=== PATIENT | male | born 1965 | race Caucasian/White ===

== ENCOUNTER 2019-09-26 09:42 | Outpatient (CLI) | payer OTHER, SELFPAY ==
[2019-09-26 10:40] LABS: Basophils Percent Auto 0.7 % (0.2-1.2); Eosinophils Absolute Auto 0.1 K/mm3 (0-0.3); Eosinophils Percent Auto 1.4 % (0-4.4); Hematocrit 44.2 % (42.0-52.0); Hemoglobin 15.3 g/dL (14.0-18.0); Immature Granulocyte Absolute 0.02 K/mm3 (0.00-0.031); Immature Granulocyte Percent A 0.5 % (0-0.5); Lymphocytes Percent Auto 27.7 % (18.3-44.2); Mean Corpuscular HGB Conc 34.6 g/dl (32-36); Mean Corpuscular Hemoglobin 31.9 pg (26-34); Mean Corpuscular Volume 92.1 fl (80-100); Mean Platelet Volume 9.5 fl (7.4-10.4); Monocytes Absolute Auto 0.5 K/mm3 (0.1-0.6); Monocytes Percent Auto 10.9 % (2.6-8.5); Neutrophils Absolute Auto 2.6 K/mm3 (1.3-6.7); Neutrophils Percent Auto 58.8 % (45.5-73.1); Platelet Count Result 217 k/mm3 (150-375); Red Cell Distribution Width 12.3 % (11.5-14.5); White Blood Count 4.3 K/mm3 (4.5-10.0)
[2019-09-26 10:48] LABS: Alanine Aminotransferase 17 U/L (4-50); Albumin Level 4.7 g/dL (3.5-5.1); Alkaline Phosphatase 63 U/L (38-126); Amylase 67 U/L (30-110); Aspartate Amino Transferase 28 U/L (17-59); Blood Urea Nitrogen 12 mg/dL (9-20); Calcium 9.2 mg/dL (8.4-10.2); Carbon Dioxide 24 mmol/L (22-30); Chloride 101 mmol/L (98-107); Estimated Glomerular Filt Rate > 60; Glucose 103 mg/dL (75-110); Lipase 67 U/L (23-300); Potassium 3.9 mmol/L (3.4-5.0); Sodium 135 mmol/L (137-145)
== END 2019-09-26 09:43 | disposition home or self-care (01) ==
PROVIDERS: PCP Family Medicine; Visit Provider Family Medicine
DX: R10.9 Unspecified abdominal pain (principal)
CPT/HCPCS: 36415; 80053; 82150; 83690; 85025

== ENCOUNTER → 2020-11-04 12:01 | Outpatient (CLI) | payer OTHER, SELFPAY ==
--- NOTE | ~2020-11-04 | XR_ITS ---
XR_CERV2-3V_CR DATE: 11/04/2020 12:48 INDICATION: Cervical radiculopathy TECHNIQUE: AP, open-mouth, lateral views COMPARISON: None FINDINGS: C1 and C2 are normally aligned and the odontoid process is intact. No fracture or dislocat ion or locked facet. No prevertebral soft tissue swelling. There is moderately prominent degenerative disc disease at C5-6 and C6-7. IMPRESSION: Moderately prominent degenerative disc disease at C5-6 and C6-7 Reviewed, dictated and finalized at [facility]. Reviewed, dictated and finalized at location A.
== END ==
PROVIDERS: PCP Family Medicine; Visit Provider Family Medicine
DX: M54.12 Radiculopathy, cervical region (principal); M50.323 Other cervical disc degeneration at C6-C7 level
CPT/HCPCS: 72040

== ENCOUNTER 2021-11-26 08:14 | Outpatient (CLI) | payer OTHER, SELFPAY ==
--- NOTE | ~2021-11-26 | XR_ITS ---
EXAMINATION: XR abdomen/kub 1V INDICATION: Epigastric pain TECHNIQUE: Supine views of the abdomen were obtained on 2 radiographs. COMPARISON: 09/01/2018 FINDINGS: The bowel gas pattern is normal. There are no dilated loops of bowel. Punctate bilateral ne phrolithiasis is noted. The visualized lung bases are clear. IMPRESSION: 1. No radiographic correlate for the patient's symptoms. Reviewed, dictated and finalized at location B.
[2021-11-26 09:06] LABS: Alanine Aminotransferase 32 U/L (6-50); Albumin Level 4.8 g/dL (3.5-5.1); Alkaline Phosphatase 64 U/L (38-126); Amylase 68 U/L (30-110); Anion Gap 10 mmol/L (8-16); Aspartate Amino Transferase 40 U/L (17-59); Blood Urea Nitrogen 13 mg/dL (9-20); Calcium 9.3 mg/dL (8.4-10.2); Carbon Dioxide 24 mmol/L (22-30); Chloride 103 mmol/L (98-107); Estimated Glomerular Filt Rate > 60; Glucose 102 mg/dL (65-110); Lipase 95 U/L (23-300); Potassium 4.2 mmol/L (3.4-5.0); Sodium 137 mmol/L (137-145)
== END 2021-11-26 08:15 | disposition home or self-care (01) ==
PROVIDERS: PCP Family Medicine; Visit Provider Physician Assistant
DX: R10.13 Epigastric pain (principal); M54.9 Dorsalgia, unspecified; Z87.442 Personal history of urinary calculi
CPT/HCPCS: 36415; 74018; 80053; 82150; 83690

== ENCOUNTER 2021-12-03 09:13 | Outpatient (CLI) | payer OTHER, SELFPAY ==
--- NOTE | ~2021-12-03 | US_ITS ---
EXAMINATION: US abdomen complete DATE: 12/03/2021 10:11 INDICATION: Epigastric pain TECHNIQUE: Multiple grayscale and Doppler ultrasound images of the abdomen were obtained. COMPARISON: 09/12/2018 FINDINGS: Bowel gas obscures visualization of the pancreas. There is a stable cluster of small hypoec hoic masses in the liver which measure up to 6 mm, most consistent with a benign finding given the la ck of interval change.. The liver is otherwise normal with normal echogenicity and echotexture. No nguyne rface nodularity. Normal hepatopetal flow in the main portal vein. The gallbladder is normal with no abnormal wall thickening, pericholecystic fluid or stones. The normal common bile duct measures 3 mm. There was no sonographic Najera sign. The visualized portions of the aorta and inferior vena cava ar e normal. The right kidney measures 11.5 x 5.7 x 4.9 cm. The left kidney measures 11.6 x 5.3 x 5.9 cm. The kidn eys demonstrate normal parenchymal echogenicity. There is no hydronephrosis. The spleen is normal in appearance and measures 10.8 cm. IMPRESSION: 1. No sonographic correlate for the patient's symptoms. Reviewed, dictated and finalized at location B.
== END 2021-12-03 09:14 | disposition home or self-care (01) ==
LOC: ANHIMG 09:18
PROVIDERS: PCP Family Medicine; Visit Provider Physician Assistant
DX: R10.13 Epigastric pain (principal); M54.9 Dorsalgia, unspecified; K59.00 Constipation, unspecified; Z87.442 Personal history of urinary calculi
CPT/HCPCS: 76700

== ENCOUNTER 2022-01-04 02:22 | Day surgery (SDC) | payer OTHER, SELFPAY ==
[2021-12-17 16:01] VITALS: BMI 30.6
--- NOTE | 2022-01-04 10:34 | P.PNAN_ITS ---
Anes - Initial Pre Proc Eval Procedure: Operation Date: 01/04/22 12:30 Proposed Procedures p Esophagogastroduodenoscopy & Colonoscopy - Meek Escobar MD Date/Time: 01/04/22 10:34 Surgeon: Meek Escobar MD Pre Op Diagnosis: hx of colon polyps, LUQP Patient Data Age: 56 Gender: M Height: 1.83 m Weight: 102.5 kg Allergies Allergy/AdvReac Type Severity Reaction Status Date / Time azithromycin Allergy Unknown Nausea and Verified 01/04/22 11:15 Vomiting Home Medications Medication Instructions Recorded Confirmed Type pantoprazole 40 mg tablet,delayed 40 mg PO BID #180 tabs 11/26/21 12/17/21 Rx release tadalafil 20 mg tablet See Rx Instructions .Route 12/28/21 01/04/22 Rx .COMPLEX #18 tabs Patient hx anesthesia problems: none Family hx anesthesia problems: none Results Review: All pre-operative results and documents have been reviewed as part of the pre- operative evaluation. [facility] Past Medical History Medical History Abdominal pain COPD (chronic obstructive pulmonary disease) GERD (gastroesophageal reflux disease) Family History Family History Father Carcinoma of colon, Onset Age: 70 Social History Social History Smoking status: Never smoker Second hand tobacco smoke exposure: No Alcohol intake: current Drinks per week: 2 Substance use: never Substance use type: does not use Living arrangements: with family Gender identity (if verbalized by the patient): Male Sexual Orientation (if Verbalized by the Patient): Straight or Heterosexual Spiritual care concerns: No Anes - Eval Final PreProcedure Day of Procedure 01/04/22 10:34 Patient weight: obese Heart: regular rate and rhythm Lungs: clear to auscultation Airway: Mallampati scale class II Neurological: alert and oriented Last oral intake: >/= 8 hours ASA classification: III Emergent: no Anesthetic plan: proceed Anesthesia type and monitoring: general GIVS and standard monitoring Results Review: All pre-operative results and documents have been reviewed as part of the pre- operative evaluation. Informed Consent: The patient's anesthetic plan and its attendant risks and benefits were discussed with the patient/family/POA. Questions were solicited and answers provided to the satisfaction of the patient/family/POA.
[2022-01-04 11:17] VITALS: BP 132/78; PULSE 81; RESP 20; TEMP 36.8; O2SAT 98; BMI 29.3
[2022-01-04] MEDS: LACTATED RINGERS 1,000 ML 150 ML IV CONT (11:21)
--- NOTE | 2022-01-04 11:31 | PM.HPGS ---
History of Present Illness History of Present Illness Consent: Risks, benefits, and alternatives have been discussed and questions answered. Patient agrees to proceed with procedure. Chief complaint: hx of colon polyps, LUQP Narrative: Eric Swan is a 56 year old male Was referred because of epigastric pain. He has been taking pantoprazole but continues to have discomfort in his upper abdomen. The pain began after he had a severe episode of constipation a couple of months ago. His bowels did finally started moving have become more regular, though the discomfort in the epigastric and left upper quadrant areas persist, a nearly constant discomfort. He has a history of polyps having had 3 polyps removed about 5 years ago. He denies seeing blood in his stools. Denies dysphagia. Review of Systems Review of Systems: All systems reviewed & are unremarkable except as noted in HPI and below PMFSH Past Medical History Medical History Abdominal pain COPD (chronic obstructive pulmonary disease) GERD (gastroesophageal reflux disease) Family History Family History Father Carcinoma of colon, Onset Age: 70 Social History Social History Smoking status: Never smoker Second hand tobacco smoke exposure: No Alcohol intake: current Drinks per week: 2 Substance use: never Substance use type: does not use Living arrangements: with family Gender identity (if verbalized by the patient): Male Sexual Orientation (if Verbalized by the Patient): Straight or Heterosexual Spiritual care concerns: No Meds Home Medications and Allergies Home Medications Medication Instructions Recorded Confirmed Type pantoprazole 40 mg tablet,delayed 40 mg PO BID #180 tabs 11/26/21 12/17/21 Rx release tadalafil 20 mg tablet See Rx Instructions .Route 12/28/21 01/04/22 Rx .COMPLEX #18 tabs Allergies Allergy/AdvReac Type Severity Reaction Status Date / Time azithromycin Allergy Unknown Nausea and Verified 01/04/22 11:15 Vomiting Vital Signs Vital Signs - 24 hr 01/04/22 11:17 Temperature 36.8 C Pulse Rate 81 Respiratory Rate 20 Blood Pressure 132/78 Pulse Oximetry 98 Oxygen Delivery Room Air Exam Const: General: alert Orientation/consciousness: patient oriented x3 Resp: Auscultation: clear to auscultation bilaterally Cardio: Rhythm: regular rhythm GI: GI Palp: Yes Soft to palpation and No Tenderness to palpation present (GI) Neuro: General: patient oriented x3 Assessment and Plan Assessment and plan (1) Epigastric pain: Code(s): R10.13 - Epigastric pain Status: Acute Assessment and Plan: EGD with possible biopsy or dilatation or cautery. (2) Colon cancer screening: Code(s): Z12.11 - Encounter for screening for malignant neoplasm of colon Status: Acute Assessment and Plan: Colonoscopy with possible biopsy or polypectomy or cautery or injection of substances.
--- NOTE | 2022-01-04 11:54 | SUR.OPER ---
EGD start 1148 end 1150, Colonoscopy start 1157 end 1207
[2022-01-04 12:11] VITALS: BP 137/81; PULSE 70; RESP 20; O2SAT 97
[2022-01-04 12:21] VITALS: BP 121/77; PULSE 68; RESP 20; O2SAT 98
[2022-01-04 12:31] VITALS: BP 118/85; PULSE 69; RESP 18; O2SAT 97
== END 2022-01-04 13:13 | disposition home or self-care (01) ==
PROVIDERS: PCP Family Medicine; Visit Provider Internal Medicine Gastroenterology
PROC: 0DJ08ZZ Inspection of Upper Intestinal Tract, Via Natural or Artificial Opening Endoscopic (ICD-10-PCS; CPT 43235; principal; 2022-01-04 12:30)
DX: Z12.11 Encounter for screening for malignant neoplasm of colon (principal); Z80.0 Family history of malignant neoplasm of digestive organs; R10.13 Epigastric pain; R10.12 Left upper quadrant pain; Z86.010 Personal history of colon polyps; J44.9 Chronic obstructive pulmonary disease, unspecified; K21.9 Gastro-esophageal reflux disease without esophagitis; R10.9 Unspecified abdominal pain
CPT/HCPCS: 43239; 45378; 87081; J2704; J7120

== ENCOUNTER 2024-04-16 12:33 | Emergency (ER) | payer OTHER, SELFPAY ==
--- NOTE | ~2024-04-16 | CT_ITS ---
CLINICAL INDICATION: Hematochezia COMPARISON: 10/19/2018. TECHNIQUE: Multiple contiguous axial images of the abdomen and pelvis were performed following the ad ministration of with 100 mL Omnipaque-350 intravenous contrast The dose-length product (DLP) was 963.81 mGy-cm. Automated exposure control and iterative reconstruction technique were employed. FINDINGS/OBSERVATIONS: Visualized lower thorax: The bilateral lung bases are clear. The heart is of normal size, without pericardial effusion. Small hiatal hernia is present. Liver: The liver is not enlarged and demonstrates homogeneous attenuation. Gallbladder and biliary system: The gallbladder is only minimally distended, and otherwise unremarkable. Pancreas: The pancreas enhances homogeneously without ductal dilatation. Spleen: The spleen enhances homogeneously and is not enlarged measuring 6cm in longitudinal dimension. Kidneys: The bilateral kidneys enhance symmetrically without hydronephrosis or obstructing renal calculi. Stable 2 and 3 mm nonobstructing renal calculi, right greater than left. Adrenal glands: Unremarkable. Gastrointestinal tract: Mural thickening with surrounding inflammatory change is identified within the sigmoid colon, finding s consistent with acute/subacute diverticulitis. No gross perforation. No drainable fluid collection. Appendix: The appendix is not definitively visualized. However, no pericecal inflammatory change is i dentified suggest the presence of acute appendicitis. Vasculature: Unremarkable. No aneurysmal dilatation or significant stenosis. Lymph nodes: No pathologically enlarged or morphologically suspicious lymph nodes within the retroperitoneum or at the root of the mesentery. Pelvic structures: The bladder is distended, and otherwise unremarkable. The prostate gland is not enlarged. Body wall and musculoskeletal: Degenerative disease within the lumbar spine with osteophyte formation, disc space narrowing, endplat e changes and vacuum phenomena. IMPRESSION: Findings consistent with acute/subacute diverticulitis of the sigmoid colon. No drainable fluid collection or gross perforation identified Multiple nonobstructing renal calculi Reviewed, dictated and finalized at location A. [employer]
[2024-04-16 12:37] VITALS: BP 146/91; PULSE 80; RESP 18; TEMP 36.7; O2SAT 99
--- NOTE | 2024-04-16 13:58 | ED.GIBLEED ---
HPI - GI Bleed General Chief complaint: GI Bleed <Brianna Bentiez APRN - Last Filed: 04/16/24 14:02> Stated complaint: blood in stool <Brianna Benitez APRN - Last Filed: 04/16/24 14:02> Time Seen by Provider: 04/16/24 13:50 <Brianna Benitez APRN - Last Filed: 04/16/24 14:02> Focused HPI: Patient is a 58-year-old male who presents ER with concerns of a GI bleed and abdominal pain. He reports he started experiencing blood in his stool on March 03. Patient reports he saw GI on March 28, 2024. The plan was for patient to get a sigmoidoscopy and CT scan but they were still waiting on insurance to authorize the procedures. Patient reports in the last day he has had increased abdominal pain, increased rectal pain, and increased tarry and bright red stools. He also endorses some nausea, lower back pain, and dizziness. Patient endorses a history of kidney stones, diverticulitis, high blood pressure. He also in sources some urinary symptoms this started in the last 24 hours. Patient denies chest pain, recent fevers, upper back pain. GENERAL: Well-appearing, well-nourished, and in no acute distress. HEAD: Normocephalic, atraumatic. CHEST: Clear to auscultation. ?No respiratory distress. HEART: Regular rate and rhythm.? NEURO: ?Alert and oriented x3. Patient screened in triage and initial orders placed.? ?Additional care and disposition to be based upon?diagnostic testing and treatment. <Brianna Benitez APRN - Last Filed: 04/16/24 14:02> History of Present Illness HPI Narrative: Major with HPI. <Jose Xie MD - Last Filed: 04/16/24 19:13> Related Data Allergies/Adverse reactions: Allergies Allergy/AdvReac Type Severity Reaction Status Date / Time azithromycin Allergy Unknown Nausea and Verified 04/16/24 12:41 Vomiting <Brianna Benitez APRN - Last Filed: 04/16/24 14:02> Review of Systems Review of Systems: All systems reviewed & are unremarkable except as noted in HPI and below <Jose Xie MD - Last Filed: 04/16/24 19:13> Constitutional: Constitutional: Reports no additional constitutional complaints <Jose Xie MD - Last Filed: 04/16/24 19:13> Cardiovascular: Cardiovascular: Reports no additional cardiovascular complaints <Jose Xie MD - Last Filed: 04/16/24 19:13> Respiratory: Respiratory: Reports no additional respiratory complaints <Jose Xie MD - Last Filed: 04/16/24 19:13> Gastrointestinal: Gastrointestinal: Reports no additional gastrointestinal complaints <Jose Xie MD - Last Filed: 04/16/24 19:13> Neurologic: Reports system reviewed and no additional complaints, except as documented <Jose Xie MD - Last Filed: 04/16/24 19:13> PMFSH Past Medical History Medical History: Medical History (Updated 04/16/24 @ 16:39 by Jose Xie MD) Constipation Bloating symptom Bright red blood per rectum GERD (gastroesophageal reflux disease) COPD (chronic obstructive pulmonary disease) Abdominal pain <Brianna Benitez APRN - Last Filed: 04/16/24 14:02> Family History Family History: Family History Father Carcinoma of colon, Onset Age: 70 <Brianna Benitez APRN - Last Filed: 04/16/24 14:02> Social History Social History: Social History Smoking status: Never smoker Second hand tobacco smoke exposure: No Alcohol intake: current Drinks per week: 2 Substance use: never Substance use type: does not use Living arrangements: with family Occupation/Education: occupation Gender identity (if verbalized by the patient): Male Sexual Orientation (if Verbalized by the Patient): Straight or Heterosexual Spiritual care concerns: No <Brianna Benitez APRN - Last Filed: 04/16/24 14:02> Exam Narrative: GENERAL: Well-appearing, well-nourished, and in no acute distress. HEAD: Normocephalic, atraumatic. ENT: Mucous membranes moist. NECK: Supple. CHEST: Clear to auscultation. No respiratory distress. HEART: Regular rate and rhythm. Normal peripheral pulses. ABDOMEN: Soft, nontender, nondistended. Normal appearing external rectum. EXTREMITIES: Normal range of motion. No edema. SKIN: Warm, dry, no rash. NEURO: Alert and oriented x3. PSYCH: Normal mood and affect. <Jose Xie MD - Last Filed: 04/16/24 19:13> Course Course Emergency Course: Patient informed of lab and imaging results. Discharge on oral antibiotics. <Jose Xie MD - Last Filed: 04/16/24 19:13> Vital Signs Vital signs: Vital Signs Temperature 98.0 F 04/16/24 12:37 Pulse Rate 80 04/16/24 12:37 Respiratory Rate 18 04/16/24 12:37 Blood Pressure 146/91 H 04/16/24 12:37 Pulse Oximetry 99 04/16/24 12:37 Oxygen Delivery Autopap 04/16/24 12:37 Temperature 97.8 F 04/16/24 17:03 Pulse Rate 72 04/16/24 17:03 Respiratory Rate 18 04/16/24 17:03 Blood Pressure 138/85 04/16/24 17:03 Pulse Oximetry 97 04/16/24 17:03 Oxygen Delivery Autopap 04/16/24 12:37 <Brianna Benitez APRN - Last Filed: 04/16/24 14:02> Vital Signs Temperature 98.0 F 04/16/24 12:37 Pulse Rate 80 04/16/24 12:37 Respiratory Rate 18 04/16/24 12:37 Blood Pressure 146/91 H 04/16/24 12:37 Pulse Oximetry 99 04/16/24 12:37 Oxygen Delivery Autopap 04/16/24 12:37 Temperature 97.8 F 04/16/24 17:03 Pulse Rate 72 04/16/24 17:03 Respiratory Rate 18 04/16/24 17:03 Blood Pressure 138/85 04/16/24 17:03 Pulse Oximetry 97 04/16/24 17:03 Oxygen Delivery Autopap 04/16/24 12:37 <Jose Xie MD - Last Filed: 04/16/24 19:13> MDM - GI Bleed Lab Data Result diagrams: 04/16/24 14:04 04/16/24 14:04 <Brianna Benitez, [employer] - Last Filed: 04/16/24 14:02> Labs: Lab Results 04/16/24 Range/Units 14:04 WBC 5.8 (4.5-10.0) K/mm3 RBC 5.02 (4.6-6.20) M/mm3 Hgb 15.9 (14.0-18.0) g/dL Hct 47.1 (42.0-52.0) % MCV 93.8 (80-100) fl MCH 31.7 (26-34) pg MCHC 33.8 (32-36) g/dl RDW 12.7 (11.5-14.5) % Plt Count 280 (150-375) k/mm3 MPV 9.0 (7.4-10.4) fl Immature Gran % (Auto) 0.3 (0-0.5) % Neut % (Auto) 57.8 (45.5-73.1) % Lymph % (Auto) 26.8 (18.3-44.2) % [place] % (Auto) 11.5 H (2.6-8.5) % Eos % (Auto) 2.7 (0-4.4) % Baso % (Auto) 0.9 (0.2-1.2) % Lymph # (Auto) 1.56 (0.9-3.2) K/mm3 [place] # (Auto) 0.7 H (0.1-0.6) K/mm3 Eos # (Auto) 0.2 (0-0.3) K/mm3 Baso # (Auto) 0.1 (0.0-0.1) K/mm3 Abs Immat Gran (auto) 0.02 (0.00-0.031) K/mm3 Absolute Neuts (auto) 3.4 (1.3-6.7) K/mm3 Absolute Nucleated RBC 0.000 (0.0-0.012) K/mm3 Nucleated RBC % 0.0 (0.0-0.2) % PT 12.6 (11.1-14.7) Seconds INR 0.9 APTT 26.4 (22.3-36.8) Seconds Sodium 139 (137-145) mmol/L Potassium 4.2 (3.4-5.0) mmol/L Chloride 103 (98-107) mmol/L Carbon Dioxide 25 (22-30) mmol/L Anion Gap 11 (4-12) mmol/L BUN 15 (9-20) mg/dL Creatinine 0.92 (0.7-1.3) mg/dL Estim Creat Clear Calc 86 ml/min Estimated GFR > 60 (59 - ) Glucose 93 (65-110) mg/dL Calcium 9.3 (8.4-10.2) mg/dL Magnesium 2.2 (1.6-2.3) mg/dL Total Bilirubin 0.8 (0.2-1.3) mg/dL AST 28 (17-59) U/L ALT 26 (6-50) U/L Alkaline Phosphatase 76 (38-126) U/L Total Protein 8.0 (6.3-8.2) g/dL Albumin 4.7 (3.5-5.1) g/dL Lipase 107 (23-300) U/L Blood Type O Positive Antibody Screen Negative <Brianna Benitez, [employer] - Last Filed: 04/16/24 14:02> Lab Results 04/16/24 Range/Units 14:04 WBC 5.8 (4.5-10.0) K/mm3 RBC 5.02 (4.6-6.20) M/mm3 Hgb 15.9 (14.0-18.0) g/dL Hct 47.1 (42.0-52.0) % MCV 93.8 (80-100) fl MCH 31.7 (26-34) pg MCHC 33.8 (32-36) g/dl RDW 12.7 (11.5-14.5) % Plt Count 280 (150-375) k/mm3 MPV 9.0 (7.4-10.4) fl Immature Gran % (Auto) 0.3 (0-0.5) % Neut % (Auto) 57.8 (45.5-73.1) % Lymph % (Auto) 26.8 (18.3-44.2) % [place] % (Auto) 11.5 H (2.6-8.5) % Eos % (Auto) 2.7 (0-4.4) % Baso % (Auto) 0.9 (0.2-1.2) % Lymph # (Auto) 1.56 (0.9-3.2) K/mm3 [place] # (Auto) 0.7 H (0.1-0.6) K/mm3 Eos # (Auto) 0.2 (0-0.3) K/mm3 Baso # (Auto) 0.1 (0.0-0.1) K/mm3 Abs Immat Gran (auto) 0.02 (0.00-0.031) K/mm3 Absolute Neuts (auto) 3.4 (1.3-6.7) K/mm3 Absolute Nucleated RBC 0.000 (0.0-0.012) K/mm3 Nucleated RBC % 0.0 (0.0-0.2) % PT 12.6 (11.1-14.7) Seconds INR 0.9 APTT 26.4 (22.3-36.8) Seconds Sodium 139 (137-145) mmol/L Potassium 4.2 (3.4-5.0) mmol/L Chloride 103 (98-107) mmol/L Carbon Dioxide 25 (22-30) mmol/L Anion Gap 11 (4-12) mmol/L BUN 15 (9-20) mg/dL Creatinine 0.92 (0.7-1.3) mg/dL Estim Creat Clear Calc 86 ml/min Estimated GFR > 60 (59 - ) Glucose 93 (65-110) mg/dL Calcium 9.3 (8.4-10.2) mg/dL Magnesium 2.2 (1.6-2.3) mg/dL Total Bilirubin 0.8 (0.2-1.3) mg/dL AST 28 (17-59) U/L ALT 26 (6-50) U/L Alkaline Phosphatase 76 (38-126) U/L Total Protein 8.0 (6.3-8.2) g/dL Albumin 4.7 (3.5-5.1) g/dL Lipase 107 (23-300) U/L Blood Type O Positive Antibody Screen Negative <Jose Xie MD - Last Filed: 04/16/24 19:13> Discharge Plan Discharge Clinical Impression: Diverticulitis <Brianna Benitez APRN - Last Filed: 04/16/24 14:02> Patient Disposition: Home, Self-Care <Brianna Benitez APRN - Last Filed: 04/16/24 14:02> Condition: Stable <Brianna Benitez APRN - Last Filed: 04/16/24 14:02> Instructions: Diverticulitis (ED), Diverticulitis Diet (ED) <Brianna Benitez APRN - Last Filed: 04/16/24 14:02> Additional Instructions: Return to the emergency department if you develop severe abdominal pain, severe nausea and vomiting to the point where you are unable to keep down fluids, if you develop chest pain or difficulty breathing, blood in your stool, dizziness or fainting, or if you develop any other new or concerning symptoms as these could be signs of more serious medical illness. Try to stay well hydrated. <Brianna Benitez APRN - Last Filed: 04/16/24 14:02> Patient Language: Vietnamese <Brianna Benitez APRN - Last Filed: 04/16/24 14:02> Prescriptions: New amoxicillin-pot clavulanate 875-125 mg tablet 1 tablet PO Q12H Qty: 14 0RF No Action pantoprazole [Protonix] 40 mg tablet,delayed release (DR/EC) 40 mg PO BID Qty: 180 3RF tadalafil 20 mg tablet See Rx Instructions .ROUTE .COMPLEX Qty: 18 3RF Dose Instruction: TAKE 1 TABLET DAILY FOR SEXUAL ACTIVITY Rx Instructions: TAKE 1 TABLET DAILY FOR SEXUAL ACTIVITY <Brianna Benitez APRN - Last Filed: 04/16/24 14:02> Follow-up/Referrals: Philip Allison MD [Primary Care Provider] - 1 Week <Brianna Benitez APRN - Last Filed: 04/16/24 14:02>
[2024-04-16] MEDS: PANTOPRAZOLE SODIUM IV 40 MG VIAL IV PUSH (14:04)
[2024-04-16] MEDS: ONDANSETRON INJ 4 MG/2 ML VIAL IV PUSH (14:04)
[2024-04-16 14:19] LABS: Basophils Absolute Auto 0.1 K/mm3 (0.0-0.1); Basophils Percent Auto 0.9 % (0.2-1.2); Eosinophils Absolute Auto 0.2 K/mm3 (0-0.3); Eosinophils Percent Auto 2.7 % (0-4.4); Hematocrit 47.1 % (42.0-52.0); Hemoglobin 15.9 g/dL (14.0-18.0); Immature Granulocyte Absolute 0.02 K/mm3 (0.00-0.031); Immature Granulocyte Percent A 0.3 % (0-0.5); Lymphocytes Absolute Auto 1.56 K/mm3 (0.9-3.2); Lymphocytes Percent Auto 26.8 % (18.3-44.2); Mean Corpuscular HGB Conc 33.8 g/dl (32-36); Mean Corpuscular Hemoglobin 31.7 pg (26-34); Mean Corpuscular Volume 93.8 fl (80-100); Monocytes Absolute Auto 0.7 K/mm3 (0.1-0.6); Monocytes Percent Auto 11.5 % (2.6-8.5); Neutrophils Absolute Auto 3.4 K/mm3 (1.3-6.7); Neutrophils Percent Auto 57.8 % (45.5-73.1); Platelet Count Result 280 k/mm3 (150-375); Red Blood Count 5.02 M/mm3 (4.6-6.20); Red Cell Distribution Width 12.7 % (11.5-14.5); White Blood Count 5.8 K/mm3 (4.5-10.0)
[2024-04-16 14:30] LABS: Alanine Aminotransferase 26 U/L (6-50); Albumin Level 4.7 g/dL (3.5-5.1); Alkaline Phosphatase 76 U/L (38-126); Anion Gap 11 mmol/L (4-12); Aspartate Amino Transferase 28 U/L (17-59); Bilirubin,Total 0.8 mg/dL (0.2-1.3); Blood Urea Nitrogen 15 mg/dL (9-20); Calcium 9.3 mg/dL (8.4-10.2); Carbon Dioxide 25 mmol/L (22-30); Chloride 103 mmol/L (98-107); Estimated CRCL calculation 86 ml/min; Estimated Glomerular Filt Rate > 60; Glucose 93 mg/dL (65-110); INR 0.9; Lipase 107 U/L (23-300); Magnesium 2.2 mg/dL (1.6-2.3); Potassium 4.2 mmol/L (3.4-5.0); Prothrombin Time 12.6 Seconds (11.1-14.7); Sodium 139 mmol/L (137-145)
[2024-04-16 14:31] LABS: Partial Thromboplastin Time 26.4 Seconds (22.3-36.8)
[2024-04-16 14:36] VITALS: BP 142/85; PULSE 72; RESP 13; O2SAT 100
[2024-04-16] MEDS: SODIUM CHLORIDE 0.9% IV 1,000 ML 999 ML IV CONT (14:37)
--- NOTE | 2024-04-16 15:48 | PC.NURSE ---
Patient ambulated to the restroom with steady gate
[2024-04-16 17:03] VITALS: BP 138/85; PULSE 72; RESP 18; TEMP 36.6; O2SAT 97
== END 2024-04-16 17:03 | disposition home or self-care (01) ==
PROVIDERS: Registered Nurse; Emergency Provider Emergency Medicine; PCP Family Medicine
DX: K57.32 Diverticulitis of large intestine without perforation or abscess without bleeding (principal); K21.9 Gastro-esophageal reflux disease without esophagitis; J44.9 Chronic obstructive pulmonary disease, unspecified; N20.0 Calculus of kidney
CPT/HCPCS: 36415; 74177; 80053; 83690; 83735; 85025; 85610; 85730; 86850; 86900; 86901; 96361; 96374; 96375; 99284; J2405; J2470; J7030; Q9967

== ENCOUNTER 2024-05-22 16:09 | Outpatient (CLI) | payer OTHER, SELFPAY ==
[2024-05-22 16:32] LABS: Basophils Percent Auto 0.7 % (0.2-1.2); Eosinophils Absolute Auto 0.2 K/mm3 (0-0.3); Eosinophils Percent Auto 3.7 % (0-4.4); Hematocrit 43.7 % (42.0-52.0); Hemoglobin 14.9 g/dL (14.0-18.0); Immature Granulocyte Absolute 0.03 K/mm3 (0.00-0.031); Immature Granulocyte Percent A 0.5 % (0-0.5); Lymphocytes Absolute Auto 1.72 K/mm3 (0.9-3.2); Mean Corpuscular HGB Conc 34.1 g/dl (32-36); Mean Corpuscular Hemoglobin 31.5 pg (26-34); Mean Corpuscular Volume 92.4 fl (80-100); Mean Platelet Volume 8.6 fl (7.4-10.4); Monocytes Absolute Auto 0.7 K/mm3 (0.1-0.6); Monocytes Percent Auto 11.7 % (2.6-8.5); Neutrophils Absolute Auto 3.1 K/mm3 (1.3-6.7); Neutrophils Percent Auto 53.4 % (45.5-73.1); Platelet Count Result 305 k/mm3 (150-375); Red Blood Count 4.73 M/mm3 (4.6-6.20); Red Cell Distribution Width 12.9 % (11.5-14.5); White Blood Count 5.7 K/mm3 (4.5-10.0)
[2024-05-22 16:49] LABS: Alanine Aminotransferase 48 U/L (6-50); Albumin Level 4.6 g/dL (3.5-5.1); Alkaline Phosphatase 77 U/L (38-126); Anion Gap 13 mmol/L (4-12); Aspartate Amino Transferase 36 U/L (17-59); Blood Urea Nitrogen 14 mg/dL (9-20); Calcium 9.5 mg/dL (8.4-10.2); Carbon Dioxide 24 mmol/L (22-30); Chloride 102 mmol/L (98-107); Estimated Glomerular Filt Rate > 60; Glucose 103 mg/dL (65-110); Potassium 3.9 mmol/L (3.4-5.0); Sodium 139 mmol/L (137-145)
== END 2024-05-22 16:10 | disposition home or self-care (01) ==
PROVIDERS: PCP Family Medicine; Visit Provider Family Medicine
DX: R10.9 Unspecified abdominal pain (principal)
CPT/HCPCS: 36415; 80053; 85025

== ENCOUNTER 2024-05-23 09:01 | Outpatient (CLI) | payer OTHER, SELFPAY ==
--- NOTE | ~2024-05-23 | CT_ITS ---
EXAMINATION: CT abdomen pelvis w con DATE: 05/23/2024 09:56 INDICATION: Diverticulitis of the intestine with TECHNIQUE: Computed tomography (CT) of the abdomen and pelvis was performed with 100 mL Omnipaque-350 intravenous contrast. Automated exposure control and iterative reconstruction technique were employe d. The dose-length product was 775.47 mGy-cm. COMPARISON: 04/16/2024 FINDINGS: Mild discoid atelectasis at the lingula. Heart size is normal. No pericardial or pleural effusion. Li bharati, gallbladder, spleen, pancreas and bilateral adrenal glands are normal. Bilateral nonobstructing nephrolithiasis with 2 stones measuring up to 2 mm in the left kidney and 4 stones in the right kidne y measuring up to 4 mm. Bladder is normal. Mild prostatomegaly measuring 4.5 x 3.3 cm. Small fat-cont aining left inguinal hernia. There is prominent diverticulosis along the sigmoid and distal descendin g colon without adjacent inflammatory stranding to suggest acute diverticulitis. There is relatively diffuse mild wall thickening throughout the sigmoid colon which could be due to acute colitis which c ould be infectious or inflammatory in etiology or chronic sequela of prior diverticulitis. There is m ild likely reactive lymphadenopathy along the sigmoid mesentery. No bowel obstruction. No free intrap eritoneal gas or fluid. No pathologically enlarged abdominal or pelvic lymphadenopathy. Severe spondy losis at L5-S1 with mild to moderate spondylosis and more cephalad lumbar and lower thoracic spine. IMPRESSION: 1. Prominent diverticulosis with wall thickening along the sigmoid colon which could be due to infect ious or inflammatory colitis or chronic sequela of prior diverticulitis. 2. Lymphadenopathy along the sigmoid mesentery which is most likely reactive. 3. Bilateral nonobstructing nephrolithiasis. Reviewed, dictated and finalized at location B. [facility] IMPRESSION: 1. Prominent diverticulosis with wall thickening along the sigmoid colon which could be due to infectious or inflammatory colitis or chronic sequela of prior diverticulitis. 2. Lymphadenopathy along the sigmoid mesentery which is most likely reactive. 3. Bilateral nonobstructing nephrolithiasis.
== END 2024-05-23 09:02 | disposition home or self-care (01) ==
PROVIDERS: PCP Family Medicine; Visit Provider Family Medicine
DX: K57.30 Diverticulosis of large intestine without perforation or abscess without bleeding (principal); R59.1 Generalized enlarged lymph nodes; N20.0 Calculus of kidney
CPT/HCPCS: 74177; Q9967

== ENCOUNTER 2024-05-23 13:04 | Emergency (ER) | payer OTHER, SELFPAY ==
[2024-05-23 13:13] VITALS: BP 121/68; PULSE 94; RESP 18; TEMP 36.3; O2SAT 98
[2024-05-23 14:14] LABS: Basophils Absolute Auto 0.1 K/mm3 (0.0-0.1); Basophils Percent Auto 0.9 % (0.2-1.2); Eosinophils Absolute Auto 0.3 K/mm3 (0-0.3); Eosinophils Percent Auto 5.4 % (0-4.4); Hematocrit 42.1 % (42.0-52.0); Hemoglobin 14.6 g/dL (14.0-18.0); Immature Granulocyte Absolute 0.03 K/mm3 (0.00-0.031); Immature Granulocyte Percent A 0.6 % (0-0.5); Lymphocytes Absolute Auto 1.64 K/mm3 (0.9-3.2); Lymphocytes Percent Auto 30.4 % (18.3-44.2); Mean Corpuscular HGB Conc 34.7 g/dl (32-36); Mean Corpuscular Hemoglobin 31.7 pg (26-34); Mean Corpuscular Volume 91.5 fl (80-100); Mean Platelet Volume 8.7 fl (7.4-10.4); Monocytes Absolute Auto 0.6 K/mm3 (0.1-0.6); Monocytes Percent Auto 10.2 % (2.6-8.5); Neutrophils Absolute Auto 2.8 K/mm3 (1.3-6.7); Neutrophils Percent Auto 52.5 % (45.5-73.1); Platelet Count Result 306 k/mm3 (150-375); White Blood Count 5.4 K/mm3 (4.5-10.0)
[2024-05-23 14:25] LABS: INR 0.9; Prothrombin Time 12.8 Seconds (11.1-14.7)
[2024-05-23 14:26] LABS: Partial Thromboplastin Time 26.2 Seconds (22.3-36.8)
[2024-05-23 14:27] LABS: Alanine Aminotransferase 47 U/L (6-50); Albumin Level 4.2 g/dL (3.5-5.1); Alkaline Phosphatase 87 U/L (38-126); Anion Gap 10 mmol/L (4-12); Aspartate Amino Transferase 36 U/L (17-59); Bilirubin,Total 0.7 mg/dL (0.2-1.3); Blood Urea Nitrogen 14 mg/dL (9-20); Calcium 9.1 mg/dL (8.4-10.2); Carbon Dioxide 24 mmol/L (22-30); Chloride 106 mmol/L (98-107); Estimated CRCL calculation 83 ml/min; Estimated Glomerular Filt Rate > 60; Glucose 138 mg/dL (65-110); Lactic Acid Reflex 1.1 mmol/L (0.7-2.0); Lipase 119 U/L (23-300); Potassium 3.8 mmol/L (3.4-5.0); Sodium 140 mmol/L (137-145)
--- NOTE | 2024-05-23 15:38 | ED.ABDPAIN ---
HPI - Abdominal Pain General Chief Complaint: Abdominal Pain Stated Complaint: Enlarged Sigmoid Colon-sent by PMD Time Seen by Provider: 05/23/24 13:45 History of Present Illness HPI narrative: Patient is a 58-year-old male who presents ER after having an outpatient CT scan that showed thickening of the sigmoid colon that may be related to chronic sequelae of diverticulitis or possibly colitis. Patient has been on Augmentin as well as Cipro/Flagyl. He has been having blood clots in his stools. Reports still have an explosive stool 2 to 3 times a day. Only once today. No fevers or chills or sweats. Mild left-sided abdominal pain. Initially seen by the GI [facility] but recently seen by his PCP. No syncope. No fevers. Related Data Allergies Allergy/AdvReac Type Severity Reaction Status Date / Time azithromycin Allergy Unknown Nausea and Verified 05/23/24 13:05 Vomiting Review of Systems Review of Systems: All systems reviewed & are unremarkable except as noted in HPI and below Constitutional: Constitutional: Reports no additional constitutional complaints ENT: Reports system reviewed and no additional complaints, except as documented Cardiovascular: Cardiovascular: Reports no additional cardiovascular complaints Respiratory: Respiratory: Reports no additional respiratory complaints Gastrointestinal: Gastrointestinal: Reports no additional gastrointestinal complaints FOR[facility]LY [facility] Past Medical History Medical History Constipation Bloating symptom Bright red blood per rectum GERD (gastroesophageal reflux disease) COPD (chronic obstructive pulmonary disease) Abdominal pain Family History Family History Father Carcinoma of colon, Onset Age: 70 Social History Social History (Updated 05/22/24 @ 15:08 by Emeli Lassiter) Social History: Smoking status: Never smoker Second hand tobacco smoke exposure: No Alcohol intake: current Drinks per week: 2 Substance use: never Substance use type: does not use Do You Feel Safe in your Home?: Yes Lack of Transportation: No Lack of Food: Never True Current Housing: I Have Housing Concerned About Future Housing: No Difficulty Paying Gas/Electric Bills: No Difficulty Paying for Meds: No Currently Unemployed: No Education: Don't Know Difficulty w/ Childcare or Family Care: No Living arrangements: with family Occupation/Education: occupation Gender identity (if verbalized by the patient): Male Sexual Orientation (if Verbalized by the Patient): Straight or Heterosexual Spiritual care concerns: No Exam Narrative: GENERAL: Well-appearing, well-nourished, and in no acute distress. HEAD: Normocephalic, atraumatic. ENT: Mucous membranes moist. CHEST: Clear to auscultation. No respiratory distress. HEART: Regular rate and rhythm. Normal peripheral pulses. ABDOMEN: Soft, mild left lower quadrant tenderness, nondistended. EXTREMITIES: Normal range of motion. No edema. SKIN: Warm, dry, no rash. NEURO: Alert and oriented x3. PSYCH: Normal mood and affect. Course Course Emergency Course: Outside images reviewed. Patient has shown me pictures of his stool which seem to be loose but not overt diarrhea. There is blood surrounding the stool but not filling the toilet. The water will become tinged with blood. Discussed case with GI, Dr. Mcallister. Patient is unable provide a stool sample here to check for C diff. It is not recommended that he be started on any additional antibiotics. He should follow up in clinic. He reports he can take a couple of weeks for diverticulitis to resolve on imaging. Will place on dicyclomine and simethicone and recommend follow-up with PCP. Vital Signs Vital signs: Vital Signs Temperature 97.4 F L 05/23/24 13:13 Pulse Rate 94 05/23/24 13:13 Respiratory Rate 18 05/23/24 13:13 Blood Pressure 121/68 05/23/24 13:13 Pulse Oximetry 98 05/23/24 13:13 Temperature 97.4 F L 05/23/24 13:13 Pulse Rate 80 05/23/24 15:54 Respiratory Rate 16 05/23/24 15:54 Blood Pressure 114/70 05/23/24 15:54 Pulse Oximetry 97 05/23/24 15:54 MDM - Abdominal Pain Lab Data 05/23/24 14:00 05/23/24 14:00 Labs: Lab Results 05/23/24 Range/Units 14:00 WBC 5.4 (4.5-10.0) K/mm3 RBC 4.60 (4.6-6.20) M/mm3 Hgb 14.6 (14.0-18.0) g/dL Hct 42.1 (42.0-52.0) % MCV 91.5 (80-100) fl MCH 31.7 (26-34) pg MCHC 34.7 (32-36) g/dl RDW 13.0 (11.5-14.5) % Plt Count 306 (150-375) k/mm3 MPV 8.7 (7.4-10.4) fl Immature Gran % (Auto) 0.6 H (0-0.5) % Neut % (Auto) 52.5 (45.5-73.1) % Lymph % (Auto) 30.4 (18.3-44.2) % Holmes % (Auto) 10.2 H (2.6-8.5) % Eos % (Auto) 5.4 H (0-4.4) % Baso % (Auto) 0.9 (0.2-1.2) % Lymph # (Auto) 1.64 (0.9-3.2) K/mm3 Holmes # (Auto) 0.6 (0.1-0.6) K/mm3 Eos # (Auto) 0.3 (0-0.3) K/mm3 Baso # (Auto) 0.1 (0.0-0.1) K/mm3 Abs Immat Gran (auto) 0.03 (0.00-0.031) K/mm3 Absolute Neuts (auto) 2.8 (1.3-6.7) K/mm3 Absolute Nucleated RBC 0.000 (0.0-0.012) K/mm3 Nucleated RBC % 0.0 (0.0-0.2) % PT 12.8 (11.1-14.7) Seconds INR 0.9 APTT 26.2 (22.3-36.8) Seconds Sodium 140 (137-145) mmol/L Potassium 3.8 (3.4-5.0) mmol/L Chloride 106 (98-107) mmol/L Carbon Dioxide 24 (22-30) mmol/L Anion Gap 10 (4-12) mmol/L BUN 14 (9-20) mg/dL Creatinine 0.92 (0.7-1.3) mg/dL Estim Creat Clear Calc 83 ml/min Estimated GFR > 60 (59 - ) Glucose 138 H (65-110) mg/dL Lactic Acid 1.1 (0.7-2.0) mmol/L Calcium 9.1 (8.4-10.2) mg/dL Total Bilirubin 0.7 (0.2-1.3) mg/dL AST 36 (17-59) U/L ALT 47 (6-50) U/L Alkaline Phosphatase 87 (38-126) U/L Total Protein 7.0 (6.3-8.2) g/dL Albumin 4.2 (3.5-5.1) g/dL Lipase 119 (23-300) U/L Discharge Plan Discharge Clinical Impression: Colitis Patient Disposition: Home, Self-Care Condition: Stable Instructions: Antibiotic Form, Colitis (ED) Additional Instructions: Is not currently recommended that you be on any additional antibiotic. You do need to provide a stool sample so can be checked for C diff. You should follow-up with GI. Patient Language: Korean Prescriptions: New simethicone 125 mg capsule 125 mg PO QID Qty: 20 0RF Rx Instructions: administer after meals and at bedtime dicyclomine 20 mg tablet 20 mg PO QID Qty: 20 0RF ondansetron 4 mg tablet,disintegrating 4 mg PO Q6H PRN (Reason: nausea and vomiting) Qty: 10 0RF No Action pantoprazole [Protonix] 40 mg tablet,delayed release (DR/EC) 40 mg PO BID Qty: 180 3RF tadalafil 20 mg tablet See Rx Instructions .ROUTE .COMPLEX Qty: 18 3RF Dose Instruction: TAKE 1 TABLET DAILY FOR SEXUAL ACTIVITY Rx Instructions: TAKE 1 TABLET DAILY FOR SEXUAL ACTIVITY dicyclomine 10 mg capsule 10 mg PO TID PRN (Reason: abdominal pain) Qty: 14 0RF ondansetron 4 mg tablet,disintegrating 4 mg PO Q6H PRN (Reason: nausea and vomiting) Qty: 14 0RF Follow-up/Referrals: Philip Allison MD [Primary Care Provider] - Angel Mcallister MD [Physician] - 1 Week
[2024-05-23 15:54] VITALS: BP 114/70; PULSE 80; RESP 16; O2SAT 97
== END 2024-05-23 17:15 | disposition home or self-care (01) ==
PROVIDERS: Emergency Medicine; Emergency Provider Emergency Medicine; PCP Family Medicine
DX: K52.9 Noninfective gastroenteritis and colitis, unspecified (principal); J44.9 Chronic obstructive pulmonary disease, unspecified; K21.9 Gastro-esophageal reflux disease without esophagitis
CPT/HCPCS: 36415; 80053; 83605; 83690; 85025; 85610; 85730; 87040; 99283

== ENCOUNTER 2024-05-29 11:11 | Outpatient (CLI) | payer OTHER, SELFPAY ==
[2024-05-29 12:11] LABS: Toxigenic C. Diff NEGATIVE (NEGATIVE)
--- OUTSIDE RECORDS SUMMARY | 2024-05-29 13:00 | XMS_ITS | Clinical Summary ---
Author Organization [facility] Address [address] [place] [address] Care Team Providers Care Cad Administrator Name Role Phone None, Provider MD Primary Care Provider Unavaila ble Allergies Active Allergy Reactions Criticality Noted Date Comments Azithromycin Hives 05/24/2024 Medications dicyclomine (BENTYL) 10 MG capsule Take 1 capsule (10 mg total) by mouth 3 (three) times daily as needed (abdominal pain). 05/08/2024 Active pantoprazole EC (PROTONIX) 40 MG tablet Take 1 tablet (40 mg total) by mouth 2 (two) times daily. 04/22/2024 Active tadalafil (CIALIS) 20 MG tablet Take 1 tablet (20 mg total) by mouth daily as needed for Erectile Dysfunction. 03/07/2024 Active Encounters Date Type Department Care Team Description 05/25/2024 Telephone [facility] - [facility] [address] [facility] [place] [address] Henry Yanez MD Appointment Request 05/24/2024 12:24 PM EXPERIMENTAL MACHINING LAB MANAGER - 05/24/2024 11:36 PM [facility] Emergency [facility] [place] [address] Héctor Hernandez DO Blood In Stool Discharge Disposition: Home or Self Care (Routine Discharge) 05/24/2024 Travel from Last 3 Months Social History Tobacco Use Types Packs/Day Years Used Date Smoking Tobacco: Never Smokeless Tobacco: Never Tobacco Cessation:Counseling Given: Not Answered Alcohol Use Standard Drinks/Week Comments Never 0 (1 standard drink = 0.6 oz pur e alcohol) Sex and Gender Information Value Date Recorded Sex Assigned at Male 05/24/2024 12:27 PM EXPERIMENTAL MACHINING LAB MANAGER Legal Sex Male 12:11 PM EXPERIMENTAL MACHINING LAB MANAGER Gender Identity Not on file Sexual Orientation Not on file Last Filed Vital Signs Vital Sign Reading Time Taken Comments Blood Pressure 113/83 05/24/2024 11:00 PM EXPERIMENTAL MACHINING LAB MANAGER Pulse 74 05/24/2024 11:00 PM EXPERIMENTAL MACHINING LAB MANAGER Temperature 36.9 C (98.5 F) 05/24/2024 12:13 PM EXPERIMENTAL MACHINING LAB MANAGER Respiratory Rate 18 05/24/2024 11:00 PM EXPERIMENTAL MACHINING LAB MANAGER Oxygen Saturation 95% 05/24/2024 11:00 PM EXPERIMENTAL MACHINING LAB MANAGER Inhaled Oxygen Concentration - - Weight 94.3 kg (208 lb) 05/24/2024 12:13 PM EXPERIMENTAL MACHINING LAB MANAGER Height 182.9 cm (6') 05/24/2024 12:13 PM EXPERIMENTAL MACHINING LAB MANAGER Body Mass Index 28.21 05/24/2024 12:13 PM EXPERIMENTAL MACHINING LAB MANAGER Plan of Treatment Upcoming Encounters Date Type Department Care Team (Late st Contact Info) Description 06/06/2024 11:20 AM CDT Office Visit [facility] Mult[facility]pec[facility]ty Care - [address], [address] [place] [phone] Pawel Gay PA-C 3 [facility] [address] [place] [address] Health Maintenance Due Date Last Done Comments Annual Physical 08/12/1968 Hepatitis C 1982 DTaP, Tdap and Td Vaccines ( 1 - Tdap) 08/12/1983 Zoster Vaccines (1 of 2) 2014 COVID-19 Vaccine (2023-2 5 season) 2023 Influenza Adult (#1) 2023 PHQ-2 (Physician [place]) 03/21/2024 Colorectal Cancer Screening FIT/FOBT (1 Year) 05/24/2025 05/24/2024 Meningococcal B Vaccine Aged Out No l onger eligible based on patient's age to complete this topic Meningococcal Vaccine Aged Out No zi kika eligible based on patient's age to complete this topic Pneumococcal Vaccine: Pediat rics (0 to 5 Years) and At-Risk Patients (6 to 64 Years) Aged Out No longer eligi ble based on patient's age to complete this topic RSV Immunizations Under 20 Months Aged Out No longer eligible based on patient's age to complete this topic Procedures Procedure Name Priority Date/Time Associated Diagnosis Comments HC URINALYSIS AUTO W/O MICRO STAT 05/24/2024 10:04 PM EXPERIMENTAL MACHINING LAB MANAGER OCCULT BLOOD, FECES STAT 05/24/2024 7 :52 PM EXPERIMENTAL MACHINING LAB MANAGER CT ABD+PEL W CON STAT 05/24/2024 3:10 PM EXPERIMENTAL MACHINING LAB MANAGER TYPE & SCREEN STAT 05/24/2024 12:29 PM EXPERIMENTAL MACHINING LAB MANAGER LIPASE Routine 05/24/2024 12:29 PM EXPERIMENTAL MACHINING LAB MANAGER COMPREHENSIVE METABOLIC PANEL STAT 05/24/2024 12:29 PM EXPERIMENTAL MACHINING LAB MANAGER CBC W/DIFF AUTOMATED STAT 05/24/2024 12:29 PM EXPERIMENTAL MACHINING LAB MANAGER from Last 3 Months Results * (ABNORMAL) URINALYSIS (05/24/2024 10:04 PM EXPERIMENTAL MACHINING LAB MANAGER) SPECIMEN TYPE URINE, UNSPECIFIED 05/24/2024 8:30 PM EXPERIMENTAL MACHINING LAB MANAGER [facility] COLOR (U) LIGHT YELLOW 05/24/2024 10:35 PM EXPERIMENTAL MACHINING LAB MANAGER [facility] TRANSPARENCY CLEAR 05/24/2024 10:35 PM EXPERIMENTAL MACHINING LAB MANAGER [facility] SPECIFIC GRAVITY (U) >1.050(H) 1.001 - 1.030 05/24/2024 10:35 PM EXPERIMENTAL MACHINING LAB MANAGER [facility] U PH 6.5 5.0 - 9.0 05/24/2024 10:35 PM EXPERIMENTAL MACHINING LAB MANAGER [facility] LEUKOCYTES (U) NEGATIVE NEGATIVE 05/24/2024 10:35 PM EXPERIMENTAL MACHINING LAB MANAGER [facility] NITRITES NEGATIVE NEGATIVE 05/24/2024 10:35 PM [facility] PROTEIN RANDOM (U) NEGATIVE <30 MG/DL 05/24/2024 10:35 PM [facility] GLUCOSE (U) NORMAL NORMAL MG/DL 05/24/2024 10:35 PM [facility] KETONES MG/DL (U) 40(A) NEGATIVE MG/DL 05/24/2024 10:35 PM [facility] UROBILINOGEN NORMAL NORMAL MG/DL 05/24/2024 10:35 PM [facility] BILIRUBIN (U) NEGATIVE NEGATIVE MG/DL 05/24/2024 10:35 PM [facility] BLOOD (U) TRACE(A) NEGATIVE 05/24/2024 10:35 PM [facility] WBC/HPF 1 <6 /HPF 05/24/2024 10:35 PM [facility] RBC/HPF 4 <6 /HPF 05/24/2024 10:35 PM [facility] SQUAMOUS EPITHELIALS RARE /HPF 05/24/2024 10:35 PM [facility] URINE SPECIMEN / Unknown 05/24/2024 10:04 PM EXPERIMENTAL MACHINING LAB MANAGER us Héctor Hernandez DO URINE ORDERABLES Final Result [facility] [address] [place] [address], * OCCULT BLOOD, FECES (05/24/2024 7:52 PM EXPERIMENTAL MACHINING LAB MANAGER) OCCULT BLOOD FECAL NEGATIVE NEGATIVE 05/24/2024 9:16 PM EXPERIMENTAL MACHINING LAB MANAGER [facility] STOOL SPECIMEN / Unknown 05/24/2024 7:52 PM EXPERIMENTAL MACHINING LAB MANAGER Héctor Hernandez DO BODY FLUIDS AND STOOLS ORDERAB LES Final Result [facility] [address] [place] [address], [place] [phone] * CT ABD+PEL W IV CON ONLY (05/24/2024 3:10 PM EXPERIMENTAL MACHINING LAB MANAGER) Anatomical Region Laterality Modality Abdomen Computed Tomogra phy 05/24/2024 3:43 PM EXPERIMENTAL MACHINING LAB MANAGER Impressions 05/24/2024 3:51 PM EXPERIMENTAL MACHINING LAB MANAGER IMPRESSION: 1. The sigmoid colon is decompressed and not well evaluated, however mild wall thickening is suspected. Findings could be inflammatory and/or neoplastic. Recommend follow-up colonoscopy. 2. Colonic diverticulosis without evidence of acute diverticulitis. 3. Numerous prominent but normal sized mesenteric lymph nodes adjacent to the sigmoid colon. 4. Nonobstructive bilateral nephrolithiasis. 5. Other chronic or nonurgent findings as described above. Referred By: Interpreted By: Rufus Saavedra MD, 05/24/2024 3:43 PM Narrative 05/24/2024 3:51 PM EXPERIMENTAL MACHINING LAB MANAGER [facility] [address] [place], [place] [address] EXAMINATION: CT ABD+PEL W CON CLINICAL HISTORY: Rectal bleeding COMPARISON: None DATE/TIME: 05/24/2024 2:59 PM TECHNIQUE: Multiplanar CT images of the abdomen and pelvis were obtained. IV contrast: uneventful intravenous administration of 100 mL Isovue 300. Oral contrast: None. A dose lowering technique was used for this procedure, which may include, but is not limited to, dose reduction technique, automated exposure control, the use of iterative reconstruction, and ALARA (As Low As Reasonably Achievable) / Image Gently techniques. FINDINGS: Liver is negative. Gallbladder is negative. Spleen is negative. Pancreas is negative. Bile ducts are negative. Adrenal glands are negative. Tiny nonobstructive renal stones. There is a tiny low-density left renal lesion, too small to characterize. Kidneys are otherwise negative. Abdominal aorta is normal caliber. Moderate prostatomegaly. Bladder is possible distended and not well evaluated. Tiny left inguinal hernia containing only fat. No free air or fluid. There is colonic diverticulosis without evidence of acute diverticulitis. The sigmoid colon is decompressed and not well evaluated, however would question a mild long segment wall thickening. Findings could relate to acute and/or chronic inflammation. Of note there are numerous prominent pericolonic lymph nodes, though within normal limits of size criteria. Given the decompressed state of the sigmoid colon, underlying neoplasm not excluded. Would recommend colonoscopy. Moderate to large amount stool in the proximal colon. The appendix is not identified but no evidence for appendicitis is seen. Stomach is grossly unremarkable. No acute osseous abnormality. Procedure Note Rufus Saavedra MD - 05/24/[address] [address] EXAMINATION: CT ABD+PEL W CON CLINICAL HISTORY: Rectal bleeding COMPARISON: None DATE/TIME: 05/24/2024 2:59 PM TECHNIQUE: Multiplanar CT images of the abdomen and pelvis were obtained.IV contrast: uneventful intravenous administration of 100 mL Isovue 300.Oral contrast: None. A dose lowering technique was used for this procedure, which may include,but is not limited to, dose reduction technique, automated exposurecontrol, the use of iterative reconstruction, and ALARA (As Low AsReasonably Achievable) / Image Gently techniques. FINDINGS: Liver is negative. Gallbladder is negative. Spleen isnegative. Pancreas is negative. Bile ducts are negative. Adrenal glandsare negative. Tiny nonobstructive renal stones. There is a tinylow-density left renal lesion, too small to characterize. Kidneys areotherwise negative. Abdominal aorta is normal caliber. Moderateprostatomegaly. Bladder is possible distended and not well evaluated. Tiny left inguinal hernia containing only fat. No free air or fluid.There is colonic diverticulosis without evidence of acute diverticulitis.The sigmoid colon is decompressed and not well evaluated, however wouldquestion a mild long segment wall thickening. Findings could relate toacute and/or chronic inflammation. Of note there are numerous prominentpericolonic lymph nodes, though within normal limits of size criteria.Given the decompressed state of the sigmoid colon, underlying neoplasm notexcluded. Would recommend colonoscopy. Moderate to large amount stool inthe proximal colon. The appendix is not identified but no evidence forappendicitis is seen. Stomach is grossly unremarkable. No acute osseousabnormality. IMPRESSION: 1. The sigmoid colon is decompressed and not well evaluated, however mildwall thickening is suspected. Findings could be inflammatory and/orneoplastic. Recommend follow-up colonoscopy. 2. Colonic diverticulosis without evidence of acute diverticulitis. 3. Numerous prominent but normal sized mesenteric lymph nodes adjacent tothe sigmoid colon. 4. Nonobstructive bilateral nephrolithiasis. 5. Other chronic or nonurgent findings as described above. Referred By: Interpreted By: Rufus Saavedra MD, 05/24/2024 3:43 PM us Moni Hidalgo [facility] CT Final Resul t * TYPE & SCREEN (05/24/2024 12:29 PM EXPERIMENTAL MACHINING LAB MANAGER) ABO/RH O POSITIVE 05/24/2024 1:25 PM EXPERIMENTAL MACHINING LAB MANAGER [facility] ANTIBODY SCREEN NEGATIVE 05/24/2024 1:25 PM EXPERIMENTAL MACHINING LAB MANAGER [facility] SAMPLE EXPIRATION 05/27/2024,2 359 05/24/2024 1:25 PM EXPERIMENTAL MACHINING LAB MANAGER [facility] 05/24/2024 12:2 9 PM EXPERIMENTAL MACHINING LAB MANAGER us Moni Hidalgo [facility] BLOOD BANK TEST ORDERABLES Final Result [facility] [address] [place] [address], [place] [phone] * (ABNORMAL) COMPREHENSIVE METABOLIC PANEL (05/24/2024 12:29 PM EXPERIMENTAL MACHINING LAB MANAGER) [facility] GLUCOSE 100(H) 70 - 99 MG/DL 05/24/2024 1:08 PM [facility] BUN 10 7 - 18 MG/DL 05/24/2024 1:08 PM [facility] CREATININE S/P/B 1.02 0.7 - 1.3 MG/DL 05/24/2024 1:08 PM [facility] SODIUM S/P/B 139 136 - 145 MMOL/L 05/24/2024 1:08 PM [facility] POTASSIUM S/P/B 3.6 3.5 - 5.1 MMOL/L 05/24/2024 1:08 PM [facility] CHLORIDE S/P/B 107 97 - 115 MMOL/L 05/24/2024 1:08 PM [facility] CO2 24.9 21 - 32 MMOL/L 05/24/2024 1:08 PM [facility] CALCIUM S/P/B 9.1 8.5 - 10.1 MG/DL 05/24/2024 1:08 PM [facility] BILIRUBIN TOTAL S/P/B 1.0 0.2 - 1.2 MG/DL 05/24/2024 1:08 PM [facility] Comment: THIS ASSAY IS NOT RECOMMENDED FOR PATIENTS UNDERGOING TREATMENT WITH ELTROMBOPAG DUE TO THE POTENTIAL FOR FALSELY ELEVATED RESULTS. TOTAL PROTEIN S/P/B 7.7 6.4 - 8.2 G/DL 05/24/2024 1:08 PM [facility] ALBUMIN S/P/B 3.9 3.4 - 5.0 G/DL 05/24/2024 1:08 PM [facility] AST 29 15 - 37 U/L 05/24/2024 1:08 PM [facility] ALT 46 16 - 60 U/L 05/24/2024 1:08 PM EXPERIMENTAL MACHINING LAB MANAGER [facility] ALKALINE PHOSPHATASE S/P/B 81 50 - 136 U/L 05/24/2024 1:08 PM EXPERIMENTAL MACHINING LAB MANAGER [facility] ANION GAP 7.1 2 - 10 MMOL/L 05/24/2024 1:08 PM EXPERIMENTAL MACHINING LAB MANAGER [facility] BUN CREATININE RATIO 9.8 6 - 26 05/24/2024 1:08 PM EXPERIMENTAL MACHINING LAB MANAGER [facility] A/G RATIO 1.0 1.0 - 2.0 RATIO 05/24/2024 1:08 PM EXPERIMENTAL MACHINING LAB MANAGER [facility] GFR ESTIMATE 85(L) >90 ML/MIN/1.7 3 M2 05/24/2024 1:08 PM EXPERIMENTAL MACHINING LAB MANAGER [facility] Comment: NOTE: eGFR is not calculated for patients <18 years of age or gender unknown. This is an estimated GFR calculation using the new CKD EPI creatinine equation without race and so does not require a correction factor for race. This estimated GFR should not be used for calculating drug doses. 05/24/2024 12:2 9 PM EXPERIMENTAL MACHINING LAB MANAGER Moni Hidalgo [facility] Final Resul t [facility] [address] [place] [address], * (ABNORMAL) CBC W/DIFF AUTOMATED (05/24/2024 12:29 PM EXPERIMENTAL MACHINING LAB MANAGER) WBC 4.92 4.5 - 11.0 x10'3/uL 05/24/2024 12:50 PM EXPERIMENTAL MACHINING LAB MANAGER [facility] RBC 4.87 4.70 - 6.10 x10'6/uL 05/24/2024 12:50 PM EXPERIMENTAL MACHINING LAB MANAGER [facility] HGB 14.9 14.0 - 18.0 G/DL 05/24/2024 12:50 PM [facility] HCT 44.5 43.0 - 54.0 % 05/24/2024 12:50 PM [facility] MCV 91.4 80.0 - 94.0 FL 05/24/2024 12:50 PM [facility] MCH 30.6 27.0 - 31.0 PG 05/24/2024 12:50 PM [facility] MCHC 33.5 32.0 - 36.0 G/DL 05/24/2024 12:50 PM [facility] RDW 12.8 11.5 - 14.5 % 05/24/2024 12:50 PM [facility] PLT 307 130 - 400 x10'3/uL 05/24/2024 12:50 PM [facility] MPV 8.7(L) 9.3 - 12.2 FL 05/24/2024 12:50 PM [facility] DIFFERENTIAL TYPE AUTOMATED DIFFERENTIAL 05/24/2024 12:50 PM [facility] NEUTROPHILS % 46.3 % 05/24/2024 12:50 PM [facility] LYMPHOCYTES % 36.2 % 05/24/2024 12:50 PM [facility] MONOCYTES % 11.6 % 05/24/2024 12:50 PM [facility] EOSINOPHILS 4.3 % 05/24/2024 12:50 PM [facility] BASOPHILS 1.0 % 05/24/2024 12:50 PM [facility] IMMATURE GRANS % 0.6 % 05/25/19 12:50 PM [facility] ABS. NEUTROPHILS 2.28 1.80 - 7.70 x10'3/uL 05/24/2024 12:50 PM EXPERIMENTAL MACHINING LAB MANAGER [facility] ABS. LYMPHOCYTES 1.78 1.00 - 4.80 x10'3/uL 05/24/2024 12:50 PM EXPERIMENTAL MACHINING LAB MANAGER [facility] ABS. MONOCYTES 0.57 0.30 - 0.82 x10'3/uL 05/24/2024 12:50 PM EXPERIMENTAL MACHINING LAB MANAGER [facility] ABS. EOSINOPHILS 0.21 0.04 - 0.54 x10'3/uL 05/24/2024 12:50 PM EXPERIMENTAL MACHINING LAB MANAGER [facility] ABS. BASOPHILS 0.05 0.01 - 0.08 x10'3/uL 05/24/2024 12:50 PM EXPERIMENTAL MACHINING LAB MANAGER [facility] ABS. IMMATURE GRANULOCYTES 0.03 0.00 - 0.49 x10'3/uL 05/24/2024 12:50 PM EXPERIMENTAL MACHINING LAB MANAGER [facility] 05/24/2024 12:2 9 PM EXPERIMENTAL MACHINING LAB MANAGER Moni Hidalgo [facility] Final Resul t [facility] [address] [place] [id number], [place] [phone] * LIPASE (05/24/2024 12:29 PM EXPERIMENTAL MACHINING LAB MANAGER) LIPASE 33 13 - 75 UNITS/L 05/24/2024 8:16 PM EXPERIMENTAL MACHINING LAB MANAGER [facility] 05/24/2024 12:2 9 PM EXPERIMENTAL MACHINING LAB MANAGER Héctor Hernandez DO LABORATORY Final Result [facility] [address] [place] [address], [place] [phone] from Last 3 Months Insurance [employer] OPEN ACCESS [facility] Care Teams Cad Administrator Relationship Specialty Start Date End Date None, Provider, MD PCP - General UNKNOWN PHYSICIAN SPECIALTY 05/24/24
== END 2024-05-29 11:12 | disposition home or self-care (01) ==
PROVIDERS: PCP Family Medicine; Visit Provider Family Medicine
DX: Z11.9 Encounter for screening for infectious and parasitic diseases, unspecified (principal)
CPT/HCPCS: 87493

== ENCOUNTER 2025-01-18 15:16 | Outpatient (CLI) | payer OTHER, SELFPAY ==
--- OUTSIDE RECORDS SUMMARY | 2025-01-18 15:21 | XMS_ITS | Clinical Summary ---
Author Organization [facility] Address [facility] [place] [address] Care Team Providers Care Toe Stripper Name Role Phone None, Provider MD Primary Care Provider Unavaila ble Allergies Active Allergy Reactions Criticality Noted Date Comments Azithromycin Hives 05/24/2024 Medications dicyclomine (BENTYL) 10 MG capsule Take 1 capsule (10 mg total) by mouth 3 (three) times daily as needed (abdominal pain). 05/08/19 25 Active pantoprazole EC (PROTONIX) 40 MG tablet Take 1 tablet (40 mg total) by mouth 2 (two) times daily. 04/22/19 25 Active tadalafil (CIALIS) 20 MG tablet Take 1 tablet (20 mg total) by mouth daily as needed for Erectile Dysfunction. 03/07/20 24 Active ondansetron (ZOFRAN-ODT) 4 MG disintegrating tablet Take 1 tablet (4 mg total) by mouth every 8 (eight) hours as needed for Nausea. Active Na sulfate-K sulfate-Mg sulfate (SUPREP BOWEL PREP KIT) 17.5-3.13-1.6 GM/177ML SolutionIndications: Abdominal pain, unspecified abdominal location,Hematochezi a,Abnormal CT scan, colon,Family history of colon cancer,History of colon polyps Take 177 mLs by mouth every 12 (twelve) hours. Per GI instructions 354 mL 06/07/19 25 Active azelastine (ASTELIN) 0.1 % nasal spray 2 sprays daily. 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 (CMS/HCC HHS/HCC) Place rectally twice a week for 4 months 8 kit 3 09/18/19 25 Active Active Problems Problem Noted Date Diagnosed Date Abdominal pain, unspecified abdominal location 0 06/06/2024 Hematochezia 06/06/[address] scan, colon 06/06/2024 Family history of colon cancer 06/06/2024 History of diverticulitis 06/06/2024 History of colon polyps 06/06/2024 Family History Medical History Relation Comments Colon Cancer Father Relation Status Comments Father Social History Tobacco Use Types Packs/Day Years Used Date Smoking Tobacco: Never Smokeless Tobacco: Never Tobacco Cessation:Counseling Given: No Alcohol Use Standard Drinks/Week Comments Not Currently 0 (1 standard drink = 0.6 oz pur e alcohol) occasionally PHQ-2 Answer Date Recorded Patient Health Questionnaire-2 Score 0 06/06/2024 Sex and Gender Information Value Date Recorded Sex Assigned at Male 05/24/2024 12:27 PM ENCAPSULATOR Legal Sex Male 12:11 PM ENCAPSULATOR Gender Identity Not on file Sexual Orientation Not on file Last Filed Vital Signs Vital Sign Reading Time Taken Comments Blood Pressure 110/66 07/03/2024 5:01 PM CDT Pulse 68 07/03/2024 5:01 PM CDT Temperature 37.3 C (99.2 F) 06/22/2024 8:29 AM CDT Respiratory Rate 16 07/03/2024 5:01 PM CDT Oxygen Saturation 99% 07/03/2024 5:01 PM CDT Inhaled Oxygen Concentration - - Weight 95.3 kg (210 lb) 07/03/2024 5:01 PM CDT Height 182.9 cm (6') 06/12/2024 2:51 PM CDT Body Mass Index 28.48 06/12/2024 2:51 PM CDT Plan of Treatment Health Maintenance Due Date Last Done Comments Annual Physical 08/12/1968 Hepatitis C 1982 DTaP, Tdap and Td Vaccines ( 1 - Tdap) 08/12/1983 Pneumococcal Vaccine: 50+ Ye ars (1 of 1 - PCV) 2014 Zoster Vaccines (1 of 2) 2014 COVID-19 Vaccine ( - 2024-2 6 season) 2024 Influenza Adult (#1) 2024 Colorectal Cancer Screening Colonoscopy (10 Years) 06/22/2034 06/22/2024 RSV Immunization or 60+ Years (1 - 1-dose 75+ series) 08/12/2039 Colorectal Cancer Screening FIT/FOBT (1 Year) Discontinued 05/24/2024 PHQ-2 (Physician [place]) Completed 06/06/2024 Hepatitis A Vaccines Aged Out No long er eligible based on patient's age to complete this topic Meningococcal B Vaccine Aged Out No l onger eligible based on patient's age to complete this topic Meningococcal Vaccine Aged Out No zi kika eligible based on patient's age to complete this topic RSV Immunizations Under 20 Months Aged Out No longer eligible based on patient's age to complete this topic Procedures Procedure Name Priority Date/Time Associated Diagnosis Comments OCCULT BLOOD, FECES STAT 05/24/2024 7 :52 PM ENCAPSULATOR from Last 3 Months or Most Recently Relevant to Health Maintenance Results * OCCULT BLOOD, FECES (05/24/2024 7:52 PM ENCAPSULATOR) OCCULT BLOOD FECAL NEGATIVE NEGATIVE 05/24/2024 9:16 PM ENCAPSULATOR [facility] STOOL SPECIMEN / Unknown 05/24/2024 7:52 PM ENCAPSULATOR Héctor Hernandez DO BODY FLUIDS AND STOOLS ORDERAB LES Final Result [facility] [address] [place] [address], [place] [phone] from Last 3 Months or Most Recently Relevant to Health Maintenance Insurance [employer] OPEN ACCESS [facility] Care Teams Toe Stripper Relationship Specialty Start Date End Date None, Provider, PCP - General UNKNOWN PHYSICIAN SPECIALTY 05/24/24
--- NOTE | 2025-01-29 11:21 | WPDHOLTEREM ---
Holter/Event Monitor Holter/Event Monitor Date of procedure: 01/18/25 Holter/Event Procedure: 3-7 Day Holter Monitor Indications: Palpitations Conclusion: 1. 7 days holter monitor on 01/18/25. 2. Underlying rhythm is sinus rhythm. HR range 44-114 bpm; average HR 70 bpm. HR at 44 bpm was on 01/19/25 at 5:26 am. 3. There are rare premature supraventricular complexes and rare supraventricular couplets. No supraventricular tachycardia. 4. There are rare premature ventricular complexes and rare ventricular couplets. No ventricular tachycardia. 5. No significant pauses greater than 3 seconds. 6. Patient reports 10 episodes of symptoms of chest pain, lightheadedness, shortness of breath which demonstrate sinus rhythm, HR range 69-92 bpm with 1 episode with PAC.
== END 2025-01-18 15:17 | disposition home or self-care (01) ==
LOC: ANHCARD 15:18
PROVIDERS: PCP Family Medicine; Visit Provider Physician Assistant
DX: I45.10 Unspecified right bundle-branch block (principal); R00.2 Palpitations; R00.0 Tachycardia, unspecified
CPT/HCPCS: 93242

== ENCOUNTER 2025-03-04 08:36 | Outpatient (CLI) | payer OTHER, SELFPAY ==
--- NOTE | ~2025-03-04 | NM_ITS ---
EXAMINATION: NM kamlesh stress w perfusion DATE: 03/05/2025 11:58 INDICATION: Chest pain TECHNIQUE: Rest images were obtained following intravenous administration of 8.2 mCi Tc99m tetrofosmin (Myoview). The patient was infused intravenously with Lexiscan (regadenoson). Then, 32.3 mCi Tc99m tetrofosmin (Myoview) was administered intravenously, and stress images were obtained. Data was recon structed into short axis and horizontal and vertical long axis SPECT images. Gated SPECT images were also obtained. COMPARISON: None. FINDINGS: There is no definite reversible or fixed perfusion abnormality to suggest ischemia or infarction. There is no segmental wall motion abnormality. Left ventricular ejection fraction measures 71%. IMPRESSION: 1. No definite ischemia or infarct. 2. Normal left ventricular ejection fraction measuring 71%. Reviewed, dictated and finalized at location A. T FURNACE HELPER
--- NOTE | 2025-03-04 08:44 | ECHO_ITS ---
Patient Info Name: Eric Swan Age: 59 years : 1965 Gender: Male Ht: 72 in Wt: 220 lbs BSA: 2.27 m2 HR: 80 bpm BP: 150 / 91 mmHg Heart Rhythm: Sinus Rhythm Technical Quality: Fair Exam Date: 03/04/2025 9:04 AM Patient Status: O Admit Date: 03/04/2025 Exam Type: CA echo doppler color flow Complete two-dimensional, color flow and Doppler transthoracic echocardiogram is performed. Staff Referring Physician: Wayne Walsh Tunnel Elastic Operator Chainstitch: Nurys Jones Attending Provider: Wayne Walsh Summary 1. Complete two-dimensional, color flow and Doppler transthoracic echocardiogram is performed. 2. There is normal biventricular size and systolic function. 3. There are no significant valvular abnormalities. Left Ventricle The left ventricle is normal in size and systolic function. There is concentric left ventricular remodeling. The left ventricular ejection fraction is visually estimated to be 65-70%. Right Ventricle The right ventricle is normal in size and systolic function. Left Atria The left atrium is normal size. Right Atria The right atrium is normal size. Atrial Septum The atrial septum is grossly normal. Aortic Valve The aortic valve is trileaflet and opens well. There is no aortic regurgitation. Pulmonic Valve The pulmonic valve is grossly normal. There is no pulmonic valve regurgitation. Mitral Valve The mitral valve is normal. There is no mitral regurgitation. Tricuspid Valve The tricuspid valve is normal. There is trace tricuspid regurgitation. Pericardium/Pleural Pericardium is normal in appearance with no evidence for significant pericardial effusion. Inferior Vena Cava Normal inferior vena cava with <50% collapse upon inspiration consistent with elevated right atrial pressure, 8 mmHg. Aorta The aortic root at the level of the sinus of Valsalva measures 3.4 cm in diameter. Left Ventricular Outflow Tract Name Value Normal LVOT 2D LVOT Diameter 2.2 cm LVOT Doppler LVOT Peak Velocity 100 cm/s LVOT Peak Gradient 4 mmHg LVOT Mean Gradient 2 mmHg LVOT VTI 20 cm LVOT VTI/AV VTI Ratio 0.7 LVOT Stroke Volume 74 ml LVOT CO 5.2 l/min LVOT CI 2.3 l/min/m2 Pulmonic Valve Name Value Normal RVOT Doppler RVOT Peak Velocity 63 cm/s RVOT Peak Gradient 2 mmHg PV Doppler PV Peak Velocity 92 cm/s PV Peak Gradient 3 mmHg Mitral Valve Name Value Normal MV Diastolic Function MV E Peak Velocity 90 cm/s MV A Peak Velocity 72 cm/s MV E/A 1.3 MV Decel Time (PW) 226 ms MV Annular TDI MV E/e' (Septal) 13.1 MV E/e' (Lateral) 8.8 MV E/e' (Average) 10.9 Tricuspid Valve Name Value Normal TV Regurgitation Doppler TR Peak Velocity 244 cm/s TR Peak Gradient 23 mmHg Estimated PAP/RSVP RA Pressure 8 mmHg <=5 PA Systolic Pressure 32 mmHg <36 RV Systolic Pressure 32 mmHg <36 TV Annular TDI TV Lateral Allison s' Velocity 14.5 cm/s >=9.5 Aorta Name Value Normal Ascending Aorta Ao Root Diameter (MM) 3.8 cm Ao Root Diam Index (MM) 1.7 cm/m2 Aortic Valve Name Value Normal AV Doppler AV Peak Velocity 128 cm/s AV Peak Gradient 7 mmHg AV Mean Gradient 3 mmHg AV VTI 27 cm AV Area (Cont Eq VTI) 2.8 cm2 >=3.0 AV Area (Cont Eq Edwin) 3.0 cm2 AV DI (Edwin) 0.78 AV Regurgitation 2D LVOT Area 3.8 cm2 Ventricles Name Value Normal LV Dimensions 2D/MM IVS Diastolic Thickness (2D) 1.1 cm 0.6-1.0 LVID Diastole (2D) 4.8 cm 4.2-5.8 LVIW Diastolic Thickness (2D) 1.1 cm 0.6-1.0 LVID Systole (2D) 2.7 cm 2.5-4.0 LVOT Diameter 2.2 cm LV Mass (2D Cubed) 198.62 g 88.00-224.00 LV Mass Index (2D Cubed) 87 g/m2 49-115 Relative Wall Thickness (2D) 0.45 <=0.42 LV Fractional Shortening/Ejection Fraction 2D/MM LV Fractional Shortening (2D) 44 % 25-43 LV EF (2D Teichholz) 75 % LV Diastolic Volume (4C MOD) 78 ml LV EF (4C MOD) 68 % LV Diastolic Volume (2C MOD) 107 ml LV EF (2C MOD) 74 % LV Diastolic Volume (BP MOD) 93 ml 62-150 LV Diastolic Volume Index (BP MOD) 41 ml/m2 34-74 LV Systolic Volume (BP MOD) 27 ml 21-61 LV Systolic Volume Index (BP MOD) 12 ml/m2 11-31 LV EF (BP MOD) 71 % 52-72 LV Diastolic Length (4C) 8.5 cm LV Systolic Length (4C) 7.1 cm LV Stroke Volume (4C MOD) 53 ml Atria Name Value Normal LA Dimensions LA Dimension (MM) 4.5 cm 3.0-4.0 LA Volume (4C A-L) 74 ml LA Volume (BP A-L) 73 ml RA Dimensions RA Area (4C) 14.6 cm2 <=18.0 Report Signatures
--- NOTE | 2025-03-04 12:00 | PCCARD ---
PIOTR ROYAL NP STOPPED TESTING BEFORE NUM MED INJECTION DUE TO HYPERTENSION. REGULAR STESS TREADMILL DONE. [facility] MADE AWARE. THEY WILL ORDER A SARA SCAN FOR PATIENT TO BE DONE.
--- NOTE | 2025-03-04 14:49 | PCCARD ---
03/04/25 -NUC MED TREADMILL STRESS TEST WAS ORDERED. THE PATIENT'S BP WAS TOO HIGH TO COMPLETE THE TEST. NO STRESS DOSE WAS INJECTED FOR NUC MED IMAGES TO BE OBTAINED. PIOTR ROYAL NP (SUPERVISING THE STRESS TEST) SAID A NON WALKING NUCLEAR STRESS TEST (LEXISCAN) NEEDED TO BE ORDERED BY [facility] (THE ORDERING DR). LEXISCAN STRESS ORDERED AND TEST IS SCHEDULED 03/05/25.
--- NOTE | 2025-03-05 10:58 | EST_ITS ---
Patient Info Name: Eric Swan Age: 59 years : 1965 Gender: Male Ht: 72 in Wt: 220 lbs BSA: 2.27 m2 HR: 63 bpm BP: 135 / 87 mmHg Heart Rhythm: Sinus Rhythm Exam Date: 03/05/2025 10:58 AM Patient Status: O Admit Date: 03/04/2025 Exam Type: CA stress kamlesh w NM A regadenoson stress test was performed. Staff Referring Physician: Wayne Walsh Attending Provider: Wayne Walsh Nurse: Dory Rae Exercise Technologist: Nurys Jones Summary 1. Clinically and electrocardiographically negative Lexiscan stress test. 2. Myocardial perfusion imaging study to be reported by Radiology. Protocol: Lexiscan Stress ECG Details Stage: REST Duration (min): 1 min : 32 sec HR (bpm): 64 SBP (mmHg): 135 DBP (mmHg): 87 Stage: REST Duration (min): 6 min : 51 sec HR (bpm): 71 SBP (mmHg): 135 DBP (mmHg): 87 Stage: STAGE 1 Duration (min): 0 min : 59 sec HR (bpm): 76 SBP (mmHg): 144 DBP (mmHg): 86 Stage: RECOVERY Duration (min): 1 min : 0 sec HR (bpm): 88 SBP (mmHg): 144 DBP (mmHg): 86 Stage: RECOVERY Duration (min): 2 min : 0 sec HR (bpm): 88 SBP (mmHg): 144 DBP (mmHg): 86 Stage: RECOVERY Duration (min): 3 min : 0 sec HR (bpm): 88 SBP (mmHg): 140 DBP (mmHg): 65 Stage: RECOVERY Duration (min): 3 min : 3 sec HR (bpm): 88 SBP (mmHg): 140 DBP (mmHg): 65 Rest HR: 71 bpm Peak HR: 89 bpm Rest Sys BP: 135 mmHg Peak Sys BP: 144 mmHg Max Pred HR: 160 bpm % Max Pred HR: 56 % Target HR: 136 bpm Max RPP: 12,816 bpm*mmHg Total Time: 1 min : 0 sec Rest Avalos BP: 87 mmHg Peak Avalos BP: 86 mmHg Total Dose: 0.4 mg Resting ECG Sinus rhythm, right bundle branch block, left anterior superior hemiblock. Stress ECG No ST or T-wave abnormalities noted following Lexiscan injection. Arrhythmias No dysrhythmia. Report Signatures
== END 2025-03-04 08:37 | disposition home or self-care (01) ==
PROVIDERS: PCP Family Medicine; Visit Provider Physician Assistant
DX: R00.2 Palpitations (principal); R00.0 Tachycardia, unspecified; R07.89 Other chest pain; Z82.49 Family history of ischemic heart disease and other diseases of the circulatory system; I49.3 Ventricular premature depolarization; I49.1 Atrial premature depolarization
CPT/HCPCS: 78452; 93017; 93306; A9502; J2785